=== PATIENT | male | born 2005 | race Caucasian/White ===

== ENCOUNTER 2024-08-27 15:27 | Emergency (ER) | payer OTHER, SELFPAY ==
--- OUTSIDE RECORDS SUMMARY | 2024-08-27 15:29 | XMS_ITS | Clinical Summary ---
Author Organization [facility] Address [address] [place] [address] Care Team Providers Care Comptometer Operator Name Role Phone No, Physician Primary Care Provider [phone] Allergies No known active allergies Medications ondansetron (Zofran) 4 mg tabletIndications: Nausea Take 1 tablet (4 mg total) by mouth every 8 (eight) hours as needed for nausea or vomiting 20 tablet 11/29/19 21 Active Additional Information Patient not taking.Reported on 12/19/2020 ondansetron ODT (ZOFRAN-ODT) 4 mg disintegrating tablet Take 1 tablet (4 mg total) by mouth every 8 (eight) hours as needed for nausea or vomiting 20 tablet 12/07/19 21 Active famotidine (PEPCID) 40 mg tablet Take 0.5 tablets (20 mg total) by mouth nightly for 14 days 14 tablet 12/07/19 21 Active Additional Information Patient not taking.Reported on 12/19/2020 cetirizine (ZyrTEC) 10 mg tablet Take 1 tablet (10 mg total) by mouth daily as needed for allergies 30 tablet 12/07/19 21 Active Additional Information Patient not taking.Reported on 12/19/2020 Active Problems No known active problems Surgical History Surgery Date Site/Laterality Comments NO PAST SURGERIES Medical History Medical History Date Comments Frequent headaches Allergic Asthma Family History Medical History Relation Name Comments No Known Problems Father Diabetes Mother Relation Name Status Comments Father Alive Mother Alive Social History Tobacco Use Types Packs/Day Years Used Date Smoking Tobacco: Never Tobacco Cessation:Counseling Given: No Personal Safety Answer Date Recorded Have you ever been in or are you currently in a harmful physical or emotional relationship or is someone making you feel afraid or unsafe? 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 Gender Identity Not on file Sexual Orientation Not on file Obstetrics History Last Filed Vital Signs Vital Sign Reading Time Taken Comments Blood Pressure 143/66 12/24/2023 9:05 PM CDT Pulse 84 12/24/2023 9:05 PM CDT Temperature 36.9 C (98.4 F) 12/24/2023 9:05 PM CDT Respiratory Rate 20 12/24/2023 9:05 PM CDT Oxygen Saturation 100% 12/24/2023 9:05 PM CDT Inhaled Oxygen Concentration - - Weight 83.9 kg (185 lb) 12/24/2023 9:05 PM CDT Height 185.4 cm (6' 1 ) 12/24/2023 9:05 PM CDT Body Mass Index 24.41 12/24/2023 9:05 PM CDT Plan of Treatment Health Maintenance Due Date Last Done Comments Depression Screening 2004 Hepatitis C Screening 2004 Meningococcal B Vaccine (2 of 2 - Bexsero SCDM 2-dose series) 11/08/2020 05/11/2020 Regular Well Visit/Exam 18-64 02/13/2022 DTaP/Tdap/Td Vaccine (7 - Td or Tdap) 07/14/2024 07/14/2014, 02/10/2009, 10/16/2005, Additional history exists Influenza Vaccine (Season Ended) 2024 06/13/2005 Hepatitis B Screening Completed 2004 , 2004, 2004 Pneumococcal vaccine <65 Aged Out 005, 2004, 2004 No longer eligible based on patient's age to complete this topic Varicella Vaccines Completed 02/10/2009, 06/13/2005 HPV Vaccines Completed 08/28/2017, 08/06/2016 Meningococcal Vaccine Completed 05/11/2020, 017 Insurance [facility] Care Teams Comptometer Operator Relationship Specialty Start Date End Date No, Physician PCP - General 12/24/23
--- OUTSIDE RECORDS SUMMARY | 2024-08-27 15:29 | XMS_ITS | Referral Summary ---
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
--- OUTSIDE RECORDS SUMMARY | 2024-08-27 15:29 | XMS_ITS | Clinical Summary ---
Author Organization [facility] [employer] Address [address] [place] [address] Care Team Providers Care Pen Or Pencil Assembly Machine Operator Name Role Phone Cece Quiroga MD Primary Care Provider Source Comments [facility] [employer],non-owned Affiliates and Associated Physician Practices is amultiple site organization consisting of ambulatory clinics and hospital sitesin [place], [place], [place] and [place]. This disclosure is being madepursuant to the Care Everywhere program and may not contain all information available regarding this patient. Last updated 17.[facility] [employer] Allergies No known active allergies Medications * Be aware that medications may not be up to date on this document. Alwaysverify current medications with the patient. 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 Gender Identity Not on file Sexual Orientation Not on file Last Filed Vital Signs Vital Sign Reading Time Taken Comments Blood Pressure 118/70 06/18/2019 8:45 PM CDT Pulse 70 06/18/2019 8:45 PM CDT Temperature 36.7 C (98.1 F) 06/18/2019 8:45 PM CDT Respiratory Rate 20 06/18/2019 8:45 PM CDT Oxygen Saturation 98% 06/18/2019 8:45 PM CDT Inhaled Oxygen Concentration - - Weight 73.4 kg (161 lb 13.1 oz) 06/18/2019 5:37 PM CDT Height 182.9 cm (6') 06/18/2019 5:37 PM CDT Body Mass Index 21.95 06/18/2019 5:37 PM CDT Plan of Treatment Health Maintenance Due Date Last Done Comments HIV SCREENING 02/13/2019 HPV VACCINE (1 - Male 3-dose series) 02/13/2019 MENINGOCOCCAL (Group B) VACC INE SHARED DECISION-MAKING (1 of 2 - Standard) 2020 HEPATITIS C SCREENING 02/09/2022 DTAP/TDAP/TD VACCINES (1 - Tdap) 02/13/2023 HEPATITIS B VACCINE (1 of 3 - 19+ 3-dose series) 02/13/2023 COVID-19 VACCINE (1 - 2023-2 5 season) 2023 DEPRESSION SCREENING 04/07/2024 INFLUENZA VACCINE (Season Ended) 2024 ZOSTER VACCINE (1 of 2) 02/13/2054 HIB VACCINE Aged Out No longer eligi ble based on patient's age to complete this topic MENINGOCOCCAL GROUPS A/C/Y/W VACCINE Aged Out No longer eligible b ased on patient's age to complete this topic PNEUMOCOCCAL VACCINE Aged Out No long er eligible based on patient's age to complete this topic [place] [address] [address] [facility] Care Teams Pen Or Pencil Assembly Machine Operator Relationship Specialty Start Date End Date Cece Quiroga MD [address], [address] [place] [address] PCP - General Pediatrics 06/18/19
--- OUTSIDE RECORDS SUMMARY | 2024-08-27 15:29 | XMS_ITS | Encounter Summary ---
Author Organization [facility] Address [address] [place] [address] Care Team Providers Care Information Security Manager Name Role Phone Jenni Mckinnon MD Primary Care Provider [phone] Cece Quiroga MD Primary Care Provider Encounter Details Date Type Department Care Team (Late st Contact Info) Description 04/21/2019 Telephone [facility] Pediatrics - Neurology [address] [place] [id number] Jenni Mckinnon MD [address] [place] [id number] Social History Tobacco Use Types Packs/Day Years Used Date Smoking Tobacco: Never Assessed Sex and Gender Information Value Date Recorded Sex Assigned at Not on file 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 Mckinnon for Mahad to come and see neuro for heaches. Left detailed messageto call the office to set up new pt appt. I have placed referral in new patient referral mail box, 04/20/2019 MOTIVE MECHANIC documented in this encounter Plan of Treatment Not on file documented as of this encounter Visit Diagnoses Not on filedocumented in this encounter Care Teams Information Security Manager Relationship Specialty Start Date End Date Jenni Mckinnon MD PCP - General 06/27/11 06/17/19 Cece Quiroga MD [address] [facility] [facility] [address], [address] [place] [address] PCP - General Pediatrics 06/18/19 documented as of this encounter
[2024-08-27 15:35] VITALS: BP 129/70; PULSE 91; RESP 16; TEMP 36.8; O2SAT 99
--- NOTE | 2024-08-27 15:48 | ED.URI ---
HPI - URI/Sore Throat General Chief Complaint: Upper Respiratory Infection Stated Complaint: Throat Irritation/Swelling Time Seen by Provider: 08/27/24 15:48 History of Present Illness HPI Narrative: 19 y/o male presented for c/o a 'swollen uvula' and sore throat. Onset one week after choking. Says he choked on potato hamburger helper, and induced many episodes of vomiting due to feeling like something was still lodged in his throat. Since then he has been chewing ice and eating things that are easy to swallow. Denies difficulty maintaining secretions, sob, wheezing, n/v/d/f/c. Says he had similar symptoms one year ago which resolved without treatment. Related Data Home Medications ?Medication ?Instructions ?Recorded ?Confirmed ?Last Taken ?Type famotidine 20 mg tablet (Acid 20 mg PO DAILY 08/27/24 Unknown History Refrigerating Oiler (famotidine)) Allergies Allergy/AdvReac Type Severity Reaction Status Date / Time No Known Allergies Allergy Verified 08/27/24 15:41 Review of Systems Review of Systems: CONSTITUTIONAL: Denies body aches, fever, chills, or sweats. EYES: Denies visual changes, redness, or discharge. ENT: reports sore throat Denies rhinorrhea, congestion, or otalgia. CARDIOVASCULAR: Denies chest pain, palpitations, or edema. RESPIRATORY: Denies dyspnea. GASTROINTESTINAL: Denies abdominal pain, nausea, vomiting, or diarrhea. SKIN: Denies rash NEUROLOGIC: Denies headache Exam Narrative: GENERAL: well-appearing, no acute distress. EYES: conjunctivae clear ENT: Mucous membranes moist. TM pearly lewis with normal light reflex bilaterally; no tragal tenderness. Oropharynx mildly erythematous without lesions. Tonsils enlarged and without exudate. No drooling, no hoarseness, no trismus, uvula midline without swelling noted. No tripod positioning, hot potato voice, or soft palate swelling. NECK: Supple. No lymphadenopathy CHEST: Clear to auscultation, breath sounds equal. No respiratory distress, speaks in full sentences. HEART: Regular rate and rhythm. No murmur heard. SKIN: Warm, dry, no rash. NEURO: Alert and oriented x3. Course Course Emergency Course: Patient is aware of diagnosis, understands and agrees to treatment plan. Anticipatory guidance given. Patient agrees to follow-up as directed and is aware of reasons to seek care at the emergency department. Portions of this record may have been created with voice recognition software Level of Care: Express Care Visit Vital Signs Vital signs: Vital Signs Temperature 98.2 F 08/27/24 15:35 Pulse Rate 91 08/27/24 15:35 Respiratory Rate 16 08/27/24 15:35 Blood Pressure 129/70 08/27/24 15:35 Pulse Oximetry 99 08/27/24 15:35 Oxygen Delivery Room Air 08/27/24 15:35 Temperature 98.2 F 08/27/24 15:35 Pulse Rate 91 08/27/24 15:35 Respiratory Rate 16 08/27/24 15:35 Blood Pressure 129/70 08/27/24 15:35 Pulse Oximetry 99 08/27/24 15:35 Oxygen Delivery Room Air 08/27/24 15:35 MDM - URI/Sore Throat MDM Narrative Medical decision making narrative: neg strep result reviewed with pt. will send steroid. Advise supportive treatments and reviewed s/s to go to the ER. Patient is appropriate for outpatient treatment and follow-up. Differential Diagnosis Differential diagnosis: Likely upper respiratory infection, viral infection, pharyngitis and other (allergic reaction) Lab Data Labs: Lab Results 08/27/24 Range/Units 15:49 POC Grp A Strep Screen Negative (Negative) Discharge Plan Discharge Clinical Impression: Pharyngitis Patient Disposition: Home Condition: Stable Instructions: Antibiotic Form, Pharyngitis (ED) Additional Instructions: Rapid strep swab was negative today You will be notified in a few days if the culture comes back positive for strep, and appropriate antibiotics will be called in at that time. if symptoms are due to a viral illness, it is not treated with antibiotics. Viral symptoms can be present for up to 10-14 days. Recommendations: Take medication as directed Tylenol every 8 hours as needed for pain/fever Soft foods, cool liquids, warm tea. Gargle with warm saltwater twice a day. Chloraseptic spray and throat lozenges. Rest and stay hydrated. --Follow up with your PCP --Go to the ER immediately if you cannot swallow your saliva, trouble breathing/wheezing, throat swelling, pain is persistent and severe Patient Language: Libyan Prescriptions: New prednisolone 15 mg/5 mL solution 50 mg PO QAM 4 Days Qty: 66.667 0RF No Action famotidine [Acid Refrigerating Oiler (famotidine)] 20 mg tablet 20 mg PO DAILY Follow-up/Referrals: UNKNOWN,DOCTOR [Primary Care Provider] -
[2024-08-27 15:51] LABS: EDSTREPNEGPOS1 Negative (Negative)
== END 2024-08-27 16:05 | disposition home or self-care (01) ==
PROVIDERS: Emergency Provider Nurse Practitioner Family
DX: J02.9 Acute pharyngitis, unspecified (principal)
CPT/HCPCS: 87081; 87880; 99203; G0463